=== PATIENT | female | born 1990 | race Caucasian/White ===

== ENCOUNTER 2017-02-18 08:57 | Emergency (ER) | payer MEDICARE ==
[~2017-02-18] VITALS: Ht 149.9 cm; Wt 109.8 kg
[2017-02-18 08:57] VITALS: BP 141/75; PULSE 80; RESP 20; TEMP 98.8; O2SAT 93
--- NOTE | 2017-02-18 08:57 | NUR ---
BROUGHT BACK TO BED #5 AND TRIAGED. REPORT GIVEN TO YUE
--- NOTE | 2017-02-18 09:02 | NUR ---
ER at bedside examining patient.
--- NOTE | 2017-02-18 09:05 | NUR ---
PT PRESENTS TO ED C/O R EAR PAIN W/NO ACUTE DISTRESS NOTED.
[2017-02-18 09:25] VITALS: BP 141/75; PULSE 80; RESP 20; TEMP 98.8; O2SAT 93
--- NOTE | 2017-02-18 09:25 | NUR ---
Patient given written and verbal discharge instructions and verbalizes understanding. ER MD discussed with patient the results and treatment provided. Given copies of tests performed in ER. Patient in stable condition. ID arm band removed. Rx of AUGMENTIN,IBUPROFEN given. Patient educated on pain management and to follow up with PMD. Pain Scale . Opportunity for questions provided and answered.
== END 2017-02-18 09:25 | disposition home or self-care (01) ==
LOC: SED 08:57
DX: H72.91 Unspecified perforation of tympanic membrane, right ear (principal); J45.909 Unspecified asthma, uncomplicated; E78.00 Pure hypercholesterolemia, unspecified; F90.9 Attention-deficit hyperactivity disorder, unspecified type; K21.9 Gastro-esophageal reflux disease without esophagitis; I10 Essential (primary) hypertension; Z88.8 Allergy status to other drugs, medicaments and biological substances
CPT/HCPCS: 99283

== ENCOUNTER 2018-01-05 20:07 | Emergency (ER) | payer MEDICARE ==
[~2018-01-05] VITALS: Ht 152.4 cm; Wt 99.8 kg
[2018-01-05 20:10] VITALS: BP_SYST 94
[2018-01-05] MEDS ORDERED: MECLIZINE HCL 25 MG TABLET (ANITVERT) PO ONE (20:45)
[2018-01-05 21:45] VITALS: BP_SYST 99
== END 2018-01-05 21:45 | disposition home or self-care (01) ==
LOC: SED 20:07
DX: R42 Dizziness and giddiness (principal); J45.909 Unspecified asthma, uncomplicated; E78.00 Pure hypercholesterolemia, unspecified; Z88.8 Allergy status to other drugs, medicaments and biological substances
CPT/HCPCS: 81025; 82962; 93005; 99283; J8597

== ENCOUNTER 2019-08-06 15:30 | Emergency (ER) | payer BC, MEDICARE ==
[~2019-08-06] VITALS: Ht 152.4 cm; Wt 109.8 kg
[2019-08-06 15:58] VITALS: BP_SYST 110
--- NOTE | 2019-08-06 16:01 | NUR ---
Patient to ER bed 04 to gown for evaluation. Side rails up.
--- NOTE | 2019-08-06 18:01 | NUR ---
CALL PLACED FOR PT TO COME IN TO ROOM #7, UNABLE TO LOCATE PT.
--- NOTE | 2019-08-06 18:21 | NUR ---
PT CALLED TO BED #7, UNABLE TO LOCATE PT IN WAITING ROOM
--- NOTE | 2019-08-06 18:47 | NUR ---
3RD CALL FOR PT, UNABLE TO LOCATE PT.
== END 2019-08-06 18:47 | disposition left against medical advice (07) ==
LOC: SED 15:30
DX: R42 Dizziness and giddiness (principal); L29.9 Pruritus, unspecified; Z53.21 Procedure and treatment not carried out due to patient leaving prior to being seen by health care provider

== ENCOUNTER 2019-09-08 10:42 | Emergency (ER) | payer BC ==
[~2019-09-08] VITALS: Ht 160 cm; Wt 112.0 kg
[2019-09-08 10:42] VITALS: BP_SYST 125
--- NOTE | 2019-09-08 10:42 | NUR ---
BROUGHT IN BY [facility], PLACED IN BED #6 AND TRIAGED. REPORT GIVEN TO JANIE
--- NOTE | 2019-09-08 10:43 | NUR ---
Patient is awake, alert, and oriented x4. Patient reports chest pain since last night with SOB. Patient vitals signs are WNL.
--- NOTE | 2019-09-08 10:44 | NUR ---
JULIO Schaefer at bedside examining patient.
[2019-09-08] MEDS ORDERED: MAG HYDROX/AL HYDROX/SIMETH 30 ML, DICYCLOMINE HCL 20 MG, LIDOCAINE VISCOUS 2% 15ML (PO... PO ONE ×3 (11:00)
[2019-09-08 11:32] LABS: BASOPHILS # (AUTO) 0.1 K/uL (0.0-0.2); BASOPHILS % (AUTO) 1.2 % (0.0-2.0); EOSINOPHILS # (AUTO) 0.2 K/uL (0.0-0.4); EOSINOPHILS % (AUTO) 1.5 % (0.0-4.0); HEMATOCRIT 41.4 % (36-48); HEMOGLOBIN 14.1 g/dL (12.0-16.0); LYMPHOCYTES # (AUTO) 3.9 K/uL (1.0-5.5); LYMPHOCYTES % (AUTO) 34.9 % (20.5-51.5); MEAN CORPUSCULAR HEMOGLOBIN 32 pg (27-31); MEAN CORPUSCULAR HGB CONC 34 % (32-36); MEAN CORPUSCULAR VOLUME 95 fL (79.0-98.0); NEUTROPHILS % (AUTO) 53.4 % (40.0-70.0); PLATELET COUNT (AUTO) 275 K/uL (130-430); RED BLOOD CELL COUNT(AUTO) 4.35 MIL/uL (4.2-6.2); RED CELL DISTRIBUTION WIDTH 13.3 % (9.0-15.0); WHITE BLOOD COUNT (AUTO) 11.3 K/uL (4.8-10.8)
[2019-09-08 11:40] LABS: ANION GAP 9 (5-15); CALCIUM 8.8 mg/dL (8.4-11.0); CHLORIDE 103 mmol/L (98-107); CREATININE 0.68 mg/dL (0.55-1.30); GLUCOSE 86 mg/dL (70-99); POTASSIUM 3.7 mmol/L (3.5-5.1); SODIUM SERUM 137 mmol/L (136-145); UREA NITROGEN, BLOOD 10 mg/dL (8-21)
[2019-09-08 11:47] LABS: GFR AFRICAN AMERICAN 130 mL/min (>90)
[2019-09-08 11:49] LABS: ALANINE AMINOTRANSFERASE 26 U/L (12-78); ASPARTATE AMINOTRANSFERASE 12 U/L (10-37); LIPASE 97 U/L (73-393); TOTAL BILIRUBIN 0.2 mg/dL (0.0-1.0)
[2019-09-08] MEDS ORDERED: IBUPROFEN 400 MG TABLET PO ONE (12:15)
[2019-09-08 12:34] VITALS: BP_SYST 130
--- NOTE | 2019-09-08 12:34 | NUR ---
Patient given written and verbal discharge instructions and verbalizes understanding. ER MD Schaefer discussed with patient the results and treatment provided. Patient in stable condition. ID arm band removed. Rx of Tylenol,Prilosec given. Patient educated on pain management and to follow up with PMD. Pain Scale 0. Opportunity for questions provided and answered. Medication side effect fact sheet provided.
== END 2019-09-08 12:34 | disposition home or self-care (01) ==
LOC: SED 10:42
DX: M94.0 Chondrocostal junction syndrome [Tietze] (principal); K21.9 Gastro-esophageal reflux disease without esophagitis; J45.909 Unspecified asthma, uncomplicated; I10 Essential (primary) hypertension; E11.9 Type 2 diabetes mellitus without complications; E78.00 Pure hypercholesterolemia, unspecified
CPT/HCPCS: 36415; 71045; 80053; 83690; 84484; 85025; 93005; 99284; J2001

== ENCOUNTER 2023-04-25 08:16 | Emergency (ER) | payer BC ==
[~2023-04-25] VITALS: Ht 154.9 cm; Wt 88.5 kg
[2023-04-25 08:35] VITALS: BP_SYST 89
[2023-04-25] MEDS ORDERED: NACL 0.9% 2,000 ML IV ONE (08:45)
[2023-04-25 09:23] LABS: BASOPHILS # (AUTO) 0.1 K/uL (0.0-0.2); BASOPHILS % (AUTO) 0.8 % (0.0-2.0); EOSINOPHILS # (AUTO) 0.2 K/uL (0.0-0.4); EOSINOPHILS % (AUTO) 1.6 % (0.0-4.0); HEMATOCRIT 42.3 % (36-48); HEMOGLOBIN 14.1 g/dL (12.0-16.0); LYMPHOCYTES # (AUTO) 3.2 K/uL (1.0-5.5); LYMPHOCYTES % (AUTO) 31.4 % (20.5-51.5); MEAN CORPUSCULAR HEMOGLOBIN 32 pg (27-31); MEAN CORPUSCULAR HGB CONC 33 % (32-36); MEAN CORPUSCULAR VOLUME 97 fL (79.0-98.0); MONOCYTES # (AUTO) 0.9 K/uL (0.0-1.0); MONOCYTES % (AUTO) 8.6 % (1.7-9.3); NEUTROPHILS # (AUTO) 5.9 K/uL (1.8-7.7); NEUTROPHILS % (AUTO) 57.6 % (40.0-70.0); PLATELET COUNT (AUTO) 113 K/uL (130-430); RED BLOOD CELL COUNT(AUTO) 4.34 MIL/uL (4.2-6.2); WHITE BLOOD COUNT (AUTO) 10.2 K/uL (4.8-10.8)
[2023-04-25 09:31] LABS: ALANINE AMINOTRANSFERASE 813 U/L (12-78); ANION GAP 12 (5-15); ASPARTATE AMINOTRANSFERASE 480 U/L (10-37); CALCIUM 8.3 mg/dL (8.4-11.0); CHLORIDE 106 mmol/L (98-107); CREATININE 0.66 mg/dL (0.55-1.30); GFR AFRICAN AMERICAN 132 mL/min (>90); GLUCOSE 101 mg/dL (74-106); TOTAL BILIRUBIN 0.5 mg/dL (0.0-1.0); UREA NITROGEN, BLOOD 6 mg/dL (8-21)
[2023-04-25 09:36] LABS: ACETAMINOPHEN < 1 ug/mL (1-30)
[2023-04-25 09:37] LABS: ALCOHOL, BLOOD < 3 mg/dL (<10)
[2023-04-25 09:52] LABS: VALPROIC ACID 78 ug/mL (50-100)
[2023-04-25 10:17] LABS: BILIRUBIN,URINE NEGATIVE (NEGATIVE); BLOOD, URINE NEGATIVE (NEGATIVE); CLARITY/URINE CLEAR (CLEAR); COLOR,URINE YELLOW (YELLOW); GLUCOSE,URINE NEGATIVE (NEGATIVE); KETONES,URINE NEGATIVE (NEGATIVE); LEUKOCYTE ESTERASE ,URINE 1+ (NEGATIVE); NITRITE, URINE NEGATIVE (NEGATIVE); PROTEIN URINE NEGATIVE (NEGATIVE); UROBILINOGEN,URINE 0.2 (0.2-1.0)
[2023-04-25 10:41] LABS: BARBITURATE, URINE NEGATIVE (NEG <=200); BENZODIAZEPINE, URINE NEGATIVE (NEG <=150); CANNABINOID, URINE NEGATIVE (NEG <=50); COCAINE, URINE NEGATIVE (NEG <=150); METHAMPHETAMINES SCREEN,URINE NEGATIVE (NEG <=500); OPIATE, URINE NEGATIVE (NEG <=100); PHENCYCLIDINE SCREEN,URINE NEGATIVE (NEG <=25); URINE AMPHETAMINE NEGATIVE (NEG <=500); URINE METHADONE NEGATIVE (NEG <=200); URINE OXYCODONE SCREEN NEGATIVE (NEG <=100); URINE PROPOXYPHENE SCREEN NEGATIVE (NEG <=300)
[2023-04-25 10:42] LABS: UR TRICYCLIC ANTIDEPRESSANTS NEGATIVE (NEG <=300)
[2023-04-25 11:23] LABS: BACTERIA,URINE FEW /HPF (None Seen); RBC,URINE 0-3 /HPF (0-3)
[2023-04-25 12:50] LABS: ANION GAP 8 (5-15); CALCIUM 7.7 mg/dL (8.4-11.0); CHLORIDE 110 mmol/L (98-107); GFR AFRICAN AMERICAN 147 mL/min (>90); GLUCOSE 76 mg/dL (74-106); UREA NITROGEN, BLOOD 5 mg/dL (8-21)
[2023-04-25 12:54] LABS: ALANINE AMINOTRANSFERASE 757 U/L (12-78); ALBUMIN 2.7 g/dL (3.4-4.8); ASPARTATE AMINOTRANSFERASE 442 U/L (10-37); TOTAL BILIRUBIN 0.5 mg/dL (0.0-1.0)
[2023-04-25 12:55] LABS: ACETAMINOPHEN < 1 ug/mL (1-30)
[2023-04-25] MEDS ORDERED: NITR-85 PO (13:10)
[2023-04-25 18:12] VITALS: BP_SYST 131
== END 2023-04-25 18:12 | disposition home or self-care (01) ==
LOC: SED 08:16
DX: N39.0 Urinary tract infection, site not specified (principal); R79.89 Other specified abnormal findings of blood chemistry; T42.8X5A Adverse effect of antiparkinsonism drugs and other central muscle-tone depressants, initial encounter; J45.909 Unspecified asthma, uncomplicated; E11.9 Type 2 diabetes mellitus without complications; I10 Essential (primary) hypertension; Z88.8 Allergy status to other drugs, medicaments and biological substances; Z79.899 Other long term (current) drug therapy; Y92.89 Other specified places as the place of occurrence of the external cause
CPT/HCPCS: 99285; 96360; 80307; 80164; 85025; 87086; 36415; 93005; 81025; 81000; 80053; G0482; J7030; G0480; G0481